=== PATIENT | female | born 1975 | race Caucasian/White ===

== ENCOUNTER → 2016-04-25 | Outpatient (CLI) | payer OTHER ==
[~2016-04-25] MED LIST: INSUINJ14 SC; PRENTAB26 PO
--- NOTE | 2016-04-25 09:52 | DIAGNOSTIC IMAGING REPORT ---
ABDOMINAL ULTRASOUND, RIGHT UPPER QUADRANT HISTORY: Right upper quadrant tender mass. COMPARISON: Abdominal ultrasound December 31, [address] of the abdomen and pelvis June 03, 2013. FINDINGS: Liver is sonographically normal. No hepatic lesions are identified. No right upper quadrant mass is identified by sonography. There is no biliary ductal dilatation. There are no gallstones. The pancreas is sonographically normal. There is no right hydronephrosis. Several small right renal calculi measure up to 4 mm. IMPRESSION: 1. No gallstones or biliary ductal dilatation. 2. No right upper quadrant mass identified by sonography. No hepatic mass. Clinical follow-up to ensure stability is recommended. If interval enlargement, repeat ultrasound is recommended. 3. Right-sided nephrolithiasis. No right hydronephrosis. Electronically signed by: Misael Snyder M.D. 04/25/2016 9:50 AM Dictated Date/Time: 04/25/2016 9:49 AM
--- NOTE | 2016-04-25 10:09 | DIAGNOSTIC IMAGING REPORT ---
TWO VIEW CHEST CLINICAL HISTORY: Cough of several months duration. FINDINGS: PA and lateral chest radiographs are compared to study dated 03/10/2015. The PA view is degraded by apical lordotic positioning. The cardiomediastinal silhouette is unremarkable. The lungs and pleural spaces are clear. There is no pneumothorax. The bony thorax appears intact. IMPRESSION: No active disease in the chest. Electronically signed by: Edvin Sidhu M.D. 04/25/2016 10:08 AM Dictated Date/Time: 04/25/2016 10:06 AM
--- NOTE | 2016-05-27 11:04 | PULMONARY FUNCTION TEST ---
INTERPRETATION: The spirometry reveals mild obstruction with no significant change in airflow with the use of albuterol. Lung volumes reveal evidence of air trapping with elevated residual volume and the diffusion capacity is slightly increased. MTDD
== END | disposition home or self-care (01) ==
LOC: C.ULTR 09:19
PROVIDERS: ATTEND Family Medicine
DX: R05 Cough (principal); J20.8 Acute bronchitis due to other specified organisms; R19.01 Right upper quadrant abdominal swelling, mass and lump; N20.0 Calculus of kidney

== ENCOUNTER → 2016-08-13 | Outpatient (CLI) | payer OTHER ==
--- NOTE | 2016-08-13 09:52 | DIAGNOSTIC IMAGING REPORT ---
CHEST 2 VIEWS ROUTINE CLINICAL HISTORY: CHRONIC COUGH dyspnea COMPARISON STUDY: 04/25/2016 FINDINGS: Mild increase in interstitial prominence bilaterally. No well-defined focal infiltrate. Diaphragms are smooth. No evidence for cardiac enlargement. IMPRESSION: Mild bronchitis. Electronically signed by: Michael Fitzpatrick M.D. 08/13/2016 9:51 AM Dictated Date/Time: 08/13/2016 9:50 AM
== END | disposition home or self-care (01) ==
LOC: C.RAD 09:32
PROVIDERS: ATTEND Physician Assistant
DX: J40 Bronchitis, not specified as acute or chronic (principal)